=== PATIENT | female | born 1995 | race African-American/Black ===

== ENCOUNTER 2024-01-13 13:29 | Emergency (ER) | payer MEDICAID ==
[~2024-01-13] VITALS: Ht 177.8 cm; Wt 100.0 kg
[2024-01-13 13:31] VITALS: BP 99/70; PULSE 117; RESP 18; TEMP 98; O2SAT 97
[2024-01-13] MEDS ORDERED: LEVETIRACETAM 1000MG PREMIX 100 ML IV ONE (14:00)
== END 2024-01-13 14:01 | disposition left against medical advice (07) ==
LOC: ER 13:29
DX: R56.9 Unspecified convulsions (principal); S00.93XA Contusion of unspecified part of head, initial encounter; W18.30XA Fall on same level, unspecified, initial encounter; Y93.89 Activity, other specified; Y92.89 Other specified places as the place of occurrence of the external cause; Y99.8 Other external cause status
CPT/HCPCS: 99283; Z7610 ×2